=== PATIENT | male | born 1960 | race Caucasian/White ===

== ENCOUNTER 2020-08-27 10:03 | Emergency (ER) | payer OTHER, SELFPAY ==
[2020-08-27 10:23] VITALS: BP 151/81; PULSE 65; RESP 16; TEMP 36.4; O2SAT 98
--- NOTE | 2020-08-27 10:43 | ED.LOWEXIN ---
HPI - Extremity Injury (Lower) General Chief Complaint: Extremity Injury, Lower Stated Complaint: Rt foot pain Source: patient and RN notes reviewed Mode of arrival: ambulatory History of Present Illness HPI Narrative: This is a 60-year-old male who presented to urgent care with complaints of right foot and big toe swelling redness and warmth. According to patient approximately 3 weeks ago he developed the same symptoms to his left foot he does have a history of gout. Last time he had a flareup presented the exact same way as his presenting today. Patient notes that with his left foot he changed his diet and resolve this time he did the same but symptoms did not resolve. The patient denies SOB, CP, palpitation, extremity numbness, lightheadedness, dizziness, constipation, diarrhea, chills, or fever. Pulses are palpable patient has full range of motion to the right foot no obvious signs or symptoms of infection noted. Related Data Allergies Allergy/AdvReac Type Severity Reaction Status Date / Time No Known Allergies Allergy Unknown Verified 08/27/20 10:07 Review of Systems Review of Systems: Narrative: A 14 organ system Review of Systems was performed and pertinent positives included in the HPI, otherwise remaining ROS is negative. All systems reviewed & are unremarkable except as noted in HPI and below PMFSH Family History Family History (Updated 08/27/20 @ 10:45 by LETHA Stern-Shai) Other Family history non-contributory Social History Social History Gender identity (if verbalized by the patient): Male Exam Narrative: Exam Narrative: GENERAL: This is a well-nourished, well-developed patient, in no apparent distress. HEAD: normocephalic, atraumatic. EYES: PERRL. Sclera clear/white. Vision is grossly intact. EARS: External ears normal, auditory canals clear and without drainage, TMs normal without perforation. Hearing grossly intact. NOSE: External nose normal with no obvious nasal discharge, nares without redness, no rhinorrhea. THROAT: Mucous membranes moist, posterior pharynx clear. NECK: Neck supple, non-tender without lymphadenopathy, masses or thyromegaly. CARDIOVASCULAR: Regular rate and rhythm without murmurs, gallops, or rubs. RESPIRATORY: Clear to auscultation. Breath sounds equal bilaterally. No wheezes, rales, or rhonchi. GASTROINTESTINAL: Abdomen soft, non-tender, nondistended. Bowel sounds are active. No hepato-splenomegaly, or palpable masses. No guarding. SKIN: warm, intact with no suspicious lesions or rash, good texture and turgor. NEURO: awake, alert, and oriented to person, place and time. There were no obvious focal neurologic abnormalities. Steady gait EXTREMITIES: Normal range of motion. Right great toe tender to touch, edematous and erythematous. No calf tenderness. Negative Homans sign bilaterally. BACK: Nontender without deformity or crepitance. No flank tenderness. Course Course Emergency Course: Patient will be treated for gout and instructed to follow-up with his primary care physician if it does not improve or resolve Vital Signs Vital signs: Vital Signs Temperature 97.6 F 08/27/20 10:23 Pulse Rate 65 08/27/20 10:23 Respiratory Rate 16 08/27/20 10:23 Blood Pressure 151/81 H 08/27/20 10:23 Pulse Oximetry 98 08/27/20 10:23 Temperature 97.6 F 08/27/20 10:23 Pulse Rate 65 08/27/20 10:23 Respiratory Rate 16 08/27/20 10:23 Blood Pressure 151/81 H 08/27/20 10:23 Pulse Oximetry 98 08/27/20 10:23 MDM - Extremity Injury (Lower) Differential Diagnosis Differential diagnosis: Likely other (Gout,) Discharge Plan Discharge Clinical Impression: Gout attack Qualifiers: Gout site: foot Encounter type: initial encounter Laterality: right Patient Disposition: Home, Self-Care Condition: Stable Instructions: Antibiotic Form, Gout (ED) Additional Instructions: Follow-up with your primary care physician in 1 to 2 weeks Take all medication
== END 2020-08-27 10:56 | disposition home or self-care (01) ==
PROVIDERS: Emergency Provider Nurse Practitioner
DX: M10.9 Gout, unspecified (principal)
CPT/HCPCS: 99213; G0463

== ENCOUNTER 2021-03-20 00:14 | Day surgery (SDC) | payer BC, SELFPAY ==
[2021-03-13 11:35] VITALS: BMI 29.7
--- NOTE | 2021-03-13 11:41 | PC.NURSE ---
Report to the Outpatient Waiting Room, entrance under the green pavilion located off [facility], at time 1000 on date 03/20/21. OR Time: 1200. - You will be asked a series of questions to screen for COVID 19 for your protection. - A mask is required within the hospital. - No visitors are allowed at this time. Preoperative COVID Testing Requirements: No COVID Test needed if: (proof is required; if not received patient will have Rapid Test prior to entry) - Patient has received COVID Vaccine at least 14 days prior to procedure date or - Patient has positive COVID test result within last 90 days of surgery date. COVID Test needed if above criteria is not met Patients may have clear liquids (water, carbonated beverages, clear teas, apple juice) until 3 hours prior to surgery with a maximum of 20 ounces. - No food from midnight until time of surgery Take the following medications with a SIP of water the morning of surgery: NONE Medications to discontinue per physician: N/A Date to take last dose: N/A Please no make-up, nail kyrgyz, hairspray, perfume, deodorant, or body powder the day of surgery. No jewelry (including any body piercings) or valuables the day of surgery, leave them at home. Please take a shower or bath the night before, or the morning of, surgery with an antibacterial soap. Wear comfortable, loose fitting clothing. HIBICLENS SHOWER - Jewelry must be removed prior to entering the operating room. Rings and piercings that are not removed may be cut off. - The hospital will not accept responsibility for valuables. - Please leave all valuables, including medications, at home the day of surgery. If you are going home after surgery, a licensed oil transport driver must drive you home. - NO public transportation without another adult. - We recommend that an adult stay with you for 24 hours following discharge. - We also recommend that you do not drive, make important decision, drink alcoholic beverages, or take any drugs that were not prescribed by your health care provider for at least 24 hours after your discharge time. Follow any additional instructions given to you from your surgeon. Telephone instructions given to SHANIQUE HILL and asked if any additional questions and then verbalized understanding. Patient advised to call surgeon office or pre surgery nurse liaison [phone] if any additional questions.
--- NOTE | 2021-03-20 08:47 | P.PNAN_ITS ---
Anes - Initial Pre Proc Eval Procedure: Operation Date: 03/20/21 12:00 Proposed Procedures p Umbilical Hernia Repair with Mesh - Jose Klein MD Date/Time: 03/20/21 08:47 Surgeon: Jose Klein MD Pre Op Diagnosis: Umbilical Hernia Patient Data Age: 60 Gender: M Height: 1.91 m Weight: 108 kg Allergies Allergy/AdvReac Type Severity Reaction Status Date / Time No Known Allergies Allergy Unknown Verified 03/13/21 11:34 Home Medications Medication Instructions Recorded Confirmed Type allopurinol 100 mg tablet 100 mg PO DAILY #90 tablet 03/10/21 03/13/21 Rx Patient hx anesthesia problems: none Family hx anesthesia problems: none Results Review: All pre-operative results and documents have been reviewed as part of the pre-operative evaluation. [facility] Past Medical History Medical History (Updated 03/20/21 @ 08:47 by Garcia Ruby DO) Gout Surgical History Surgical History S/P appendectomy Family History Family History Father Lung cancer Sibling Hypertension Other Family history non-contributory Social History Social History Smoking status: Never smoker Alcohol intake: never Substance use: never Substance use type: does not use Living arrangements: with family Gender identity (if verbalized by the patient): Male Sexual Orientation (if Verbalized by the Patient): Straight or Heterosexual Spiritual care concerns: No Agree to blood products: Yes Anes - Eval Final PreProcedure Day of Procedure 03/20/21 08:47 Patient weight: overweight Heart: regular rate and rhythm Lungs: clear to auscultation and normal air movement Airway: Mallampati scale class II Neurological: alert and oriented Last oral intake: >/= 8 hours ASA classification: II Emergent: no Anesthetic plan: proceed Anesthesia type and monitoring: general GIVS and standard monitoring Results Review: All pre-operative results and documents have been reviewed as part of the pre-operative evaluation. Informed Consent: The patient's anesthetic plan and its attendant risks and benefits were discussed with the patient/family/POA. Questions were solicited and answers provided to the satisfaction of the patient/family/POA.
[2021-03-20] MEDS: LACTATED RINGERS 1,000 ML 30 ML IV CONT (10:15)
[2021-03-20] MEDS: ACETAMINOPHEN 500 MG TABLET 1000 MG PO (10:38)
[2021-03-20] MEDS: KETOROLAC 15 MG/ML VIAL (*BKC) IV PUSH (10:39)
[2021-03-20 11:00] VITALS: BP 131/71; PULSE 61; RESP 18; TEMP 36.7; O2SAT 98
--- NOTE | 2021-03-20 11:47 | WPDHPUPDATE1 ---
History and Physical Update Update Date/Time: 03/20/21 11:47 History and Physical has been reviewed, including an updated exam of the patient. There are NO changes in the patient's condition. Risks, benefits, and alternatives have been discussed and questions answered. Patient agrees to proceed with procedure.
[2021-03-20] MEDS: ceFAZolin 2 GM/D5W 50 ML 2 GM/50 ML BAG IVPB (12:13)
[2021-03-20 12:47] VITALS: BP 122/79; PULSE 69; RESP 12; O2SAT 96
[2021-03-20] MEDS: BUPIVACAINE/EPINEPHRINE 0.5% 30 ML VIAL INFILTRATE (13:03)
--- NOTE | 2021-03-20 13:24 | P.OP_ITS ---
Procedure Note - Detailed Date of Procedure 03/20/21 Pre-op Diagnosis Umbilical Hernia Post-op Diagnosis same Procedure Performed Umbilical hernia repair with 6.[address] underlay mesh Surgeon Jose Klein MD Check Examiner Shira MONAE Anesthesia MAC and local (0.5% Marcaine with epinephrine) Indications Patient has had an umbilical bulge from quite some time. It has gotten larger and is occasionally painful. He was seen in the office and is now taken to surgery for repair with mesh. Findings Defect was about 1.2 x 1.8 cm. Description of Procedure Patient was checked in the preoperative holding area. He was then taken to surgery and IV sedation was administered. He abdomen was prepped and draped. The proposed incision was along the upper margin of the umbilicus and was drawn on the skin. Local was infiltrated into the skin and the subcutaneous. Incision was made dissection carried down through the skin and we immediately were able to see the hernia sac. The hernia sac was dissected free from the umbilical skin and the surrounding subcutaneous. We dissected down to the neck of the hernia sac and exposed it circumferentially as well. I then scored thro ugh the hernia sac at its neck. The sac was removed and discarded. There was omentum in the hernia. This was reduced back into the abdominal cavity. I placed a finger in the defect and checked for any adhesions of significance in the area. There was none. I also checked for additional hernias and did not find any either. I undermined the subcutaneous around the hernia defect using the cautery. The fascia around the hernia defect was then anesthetized with local. A 6.[address] patch was then placed in the defect and centered symmetrically. Cranial and caudal transfascial sutures of 0 Ethibond were then placed. The sutures were positioned in such a fashion as they would advance the edges of the hernia defect towards 1 another once they were tied. I cut the straps to the mesh. I then tied each of the transfascial sutures. They had the desired effect of advancing the fascial edges towards 1 another so they could be closed without tension. I then closed the hernia defect with a [id number] mattress suture of 0 Ethibond. This also incorporated a bit of mesh. The repair looked good. I infiltrated additional local around the areas of the repair. I then sutured the umbilical skin to the fascia with interrupted 3-0 Vicryl suture. Some deeper subcutaneous 3-0 Vicryl sutures were placed followed by some more superficial 3-0 Vicryl subcutaneous sutures were placed to obliterate space and further anchor the of repair. The the skin was loosely approximated with subcuticular interrupted 4-0 Vicryl skin suture. Finally a running 4-0 Monocryl skin suture was placed. The wound was dressed with Exofin surgical adhesive. Patient was then awakened and taken to recovery in good condition. Sponge and needle counts were correct x2. Implants 6.[address] hernia patch Estimated Blood Loss -5 Drains No Packing No Pathology none sent Complications No immediate complications Condition stable Disposition same day
[2021-03-20 13:53] VITALS: BP 116/69; PULSE 63; RESP 12; O2SAT 99
[2021-03-20 14:15] VITALS: BP 129/83; PULSE 61; RESP 12
== END 2021-03-20 14:25 | disposition home or self-care (01) ==
PROVIDERS: PCP Family Medicine; Visit Provider Surgery
PROC: (CPT 49585; principal; 2021-03-20 12:00)
DX: K42.9 Umbilical hernia without obstruction or gangrene (principal); M10.9 Gout, unspecified
CPT/HCPCS: 49585; A9270; C1781; J0690; J1885; J2704; J3010; J7120

== ENCOUNTER 2022-01-05 01:37 | Day surgery (SDC) | payer BC, SELFPAY ==
--- NOTE | 2021-12-31 14:30 | PM.HPGS ---
History of Present Illness History of Present Illness Consent: Risks, benefits, and alternatives have been discussed and questions answered. Patient agrees to proceed with procedure. Chief complaint: neoplasm screening Narrative: Woodrow Dumont is a 61 year old male Referred for colon cancer screening. Review of Systems Review of Systems: All systems reviewed & are unremarkable except as noted in HPI and below PMFSH Past Medical History Medical History BMI 30.0-30.9,adult Gout Hyperlipidemia Surgical History Surgical History H/O umbilical hernia repair w mesh 03/20/21 S/P appendectomy Family History Family History Father Lung cancer Sibling Hypertension Other Family history non-contributory Social History Social History Smoking status: Never smoker Alcohol intake: current Alcohol use details: rarely Substance use: never Substance use type: does not use Living arrangements: with family Gender identity (if verbalized by the patient): Male Sexual Orientation (if Verbalized by the Patient): Straight or Heterosexual Spiritual care concerns: No Agree to blood products: Yes Meds Home Medications and Allergies Home Medications Medication Instructions Recorded Confirmed Type allopurinol 100 mg tablet 100 mg PO DAILY #90 tabs 09/03/21 01/05/22 Rx Allergies Allergy/AdvReac Type Severity Reaction Status Date / Time No Known Allergies Allergy Unknown Verified 01/05/22 06:54 Exam Const: General: alert Orientation/consciousness: patient oriented x3 Resp: Auscultation: clear to auscultation bilaterally Cardio: Rhythm: regular rhythm GI: GI Palp: Yes Soft to palpation and No Tenderness to palpation present (GI) Neuro: General: patient oriented x3 Assessment and Plan Assessment and plan (1) Screening for colon cancer: Code(s): Z12.11 - Encounter for screening for malignant neoplasm of colon Status: Acute Assessment and Plan: Colonoscopy with possible biopsy or polypectomy or cautery or injection of substances.
--- NOTE | 2022-01-03 11:23 | WPDANESEPPF ---
Anes - Initial Pre Proc Eval Procedure: Operation Date: 01/05/22 08:00 Proposed Procedures p Screening Colonoscopy - Iggy Louie MD Date/Time: 01/03/22 11:23 Surgeon: Iggy Louie MD Pre Op Diagnosis: neoplasm screening Patient Data Age: 61 Gender: M Height: 1.91 m Weight: 109 kg Allergies Allergy/AdvReac Type Severity Reaction Status Date / Time No Known Allergies Allergy Unknown Verified 01/05/22 06:54 Home Medications Medication Instructions Recorded Confirmed Type allopurinol 100 mg tablet 100 mg PO DAILY #90 tabs 09/03/21 01/05/22 Rx Patient hx anesthesia problems: none Family hx anesthesia problems: none Results Review: All pre-operative results and documents have been reviewed as part of the pre-operative evaluation. [facility] Past Medical History Medical History BMI 30.0-30.9,adult Gout Hyperlipidemia Surgical History Surgical History H/O umbilical hernia repair w mesh 03/20/21 S/P appendectomy Family History Family History Father Lung cancer Sibling Hypertension Other Family history non-contributory Social History Social History Smoking status: Never smoker Alcohol intake: current Alcohol use details: rarely Substance use: never Substance use type: does not use Living arrangements: with family Gender identity (if verbalized by the patient): Male Sexual Orientation (if Verbalized by the Patient): Straight or Heterosexual Spiritual care concerns: No Agree to blood products: Yes Anes - Eval Final PreProcedure Day of Procedure 01/03/22 11:23 Patient weight: overweight Heart: regular rate and rhythm Lungs: clear to auscultation and normal air movement Airway: Mallampati scale class II Neurological: alert and oriented Last oral intake: >/= 8 hours ASA classification: II Emergent: no Anesthetic plan: proceed Anesthesia type and monitoring: general GIVS and standard monitoring Results Review: All pre-operative results and documents have been reviewed as part of the pre-operative evaluation. Informed Consent: The patient's anesthetic plan and its attendant risks and benefits were discussed with the patient/family/POA. Questions were solicited and answers provided to the satisfaction of the patient/family/POA.
[2022-01-05 06:56] VITALS: BP 144/86; PULSE 72; RESP 18; TEMP 36.4; O2SAT 96
[2022-01-05] MEDS: LACTATED RINGERS 1,000 ML 150 ML IV CONT (07:04)
[2022-01-05] MEDS: SIMETHICONE ORAL SUSPENSION 20 MG/0.3 ML 30 ML BOTTLE 0.6 ML IRRIGATION (08:06)
[2022-01-05 08:14] VITALS: BP 110/70; PULSE 68; RESP 20; O2SAT 96
[2022-01-05 08:24] VITALS: BP 112/73; PULSE 60; RESP 19; O2SAT 96
[2022-01-05 08:34] VITALS: BP 121/87; PULSE 60; RESP 15; O2SAT 97
== END 2022-01-05 08:42 | disposition home or self-care (01) ==
PROVIDERS: PCP Family Medicine; Visit Provider Internal Medicine Gastroenterology
PROC: 0DJD8ZZ Inspection of Lower Intestinal Tract, Via Natural or Artificial Opening Endoscopic (ICD-10-PCS; CPT 45378; principal; 2022-01-05 08:00)
DX: Z12.11 Encounter for screening for malignant neoplasm of colon (principal); K57.30 Diverticulosis of large intestine without perforation or abscess without bleeding; M10.9 Gout, unspecified
CPT/HCPCS: 45378; J2704; J7120